=== PATIENT | female | born 1975 | race Caucasian/White ===

== ENCOUNTER 2017-11-14 05:07 | Emergency (ER) | payer MEDICAID, OTHER ==
[~2017-11-14] VITALS: Ht 160 cm; Wt 64.0 kg
[2017-11-14] MEDS ORDERED: SODIUM CHLORIDE 0.9% 1,000 ML IV ONE (06:17)
[2017-11-14 06:38] LABS: EOSINOPHILS % 1.5 % (0.0-5.0); HEMATOCRIT. 38.5 % (36.0-48.0); HEMOGLOBIN. 13.4 g/dL (12.0-16.0); LYMPHOCYTES % 29.9 % (20.0-50.0); MEAN CORPUSCULAR HEMOGLOBIN 31.8 pg (28.0-32.0); MEAN CORPUSCULAR VOLUME 91.4 fL (81.0-99.0); MEAN PLATELET VOLUME 8.5 fl (7.4-10.4); MONOCYTES % 7.2 % (2.0-8.0); NEUTROPHILS % 60.4 % (40.0-76.0); PLATELET 223 x1000/uL (130-400); RED BLOOD CELL COUNT 4.21 mill/uL (4.2-5.4); RED CELL DISTRIBUTION WIDTH 13.3 % (11.6-14.6)
[2017-11-14 06:48] LABS: PARTIAL THROMBOPLASTIN TIME 27.3 sec (23.4-31.0); PROTHROMBIN TIME 10.3 sec (9.4-11.6)
[2017-11-14 06:50] LABS: CHLORIDE 113 mEq/L (98-107)
[2017-11-14 06:58] LABS: HCG SCREEN NEGATIVE
[2017-11-14 07:30] VITALS: BP 113/73
== END 2017-11-14 08:26 | disposition home or self-care (01) ==
LOC: ER 05:25
DX: R42 Dizziness and giddiness (principal); R00.2 Palpitations; Z88.0 Allergy status to penicillin
CPT/HCPCS: 36415; 71045; 80053; 83690; 83880; 84443; 84484; 84703; 85025; 85610; 85730; 93005; 96360; 96361; 99285; J7030; Z7610; 99291

== ENCOUNTER 2018-08-08 11:32 | Emergency (ER) | payer OTHER ==
[~2018-08-08] VITALS: Ht 157.5 cm; Wt 74.0 kg
[2018-08-08 14:35] VITALS: BP 117/61
== END 2018-08-08 14:43 | disposition home or self-care (01) ==
LOC: ER 12:32
DX: M72.2 Plantar fascial fibromatosis (principal); M79.672 Pain in left foot; M79.671 Pain in right foot; M76.61 Achilles tendinitis, right leg; Z88.0 Allergy status to penicillin
CPT/HCPCS: 99282